=== PATIENT | male | born 1980 | race Caucasian/White ===

== ENCOUNTER 2023-06-30 01:25 | Emergency (ER) | payer OTHER ==
[~2023-06-30] VITALS: Ht 160 cm; Wt 72.6 kg
[2023-06-30 01:34] VITALS: BP 130/85; PULSE 100; RESP 18; TEMP 97.4; O2SAT 95
== END 2023-06-30 01:57 | disposition left against medical advice (07) ==
LOC: MED 01:25
DX: R07.9 Chest pain, unspecified (principal); R11.10 Vomiting, unspecified; Z53.21 Procedure and treatment not carried out due to patient leaving prior to being seen by health care provider
CPT/HCPCS: 99281